=== PATIENT | female | born 1970 ===

== ENCOUNTER 2021-09-15 05:12 | Emergency (ER) | payer OTHER ==
[~2021-09-15] VITALS: Ht 180.3 cm; Wt 109.1 kg
[2021-09-15 05:16] VITALS: BP 128/94; TEMP 97.1
[2021-09-15] MEDS ORDERED: PREDNISONE20 MG PO (06:53)
[2021-09-15 06:58] VITALS: PULSE 77
== END 2021-09-15 06:58 | disposition home or self-care (01) ==
LOC: COL.ER 05:12
DX: T78.3XXA Angioneurotic edema, initial encounter (principal)
CPT/HCPCS: J1200; J2930; J7030

== ENCOUNTER → 2023-05-24 | Outpatient (CLI) | payer OTHER ==
[~2023-05-24] MED LIST: PREDNISONE20 MG PO
== END ==
LOC: MC.RAD 13:53
DX: N60.02 Solitary cyst of left breast (principal); N60.01 Solitary cyst of right breast